=== PATIENT | male | born 1955 | race Caucasian/White ===

== ENCOUNTER → 2018-12-09 | Outpatient (CLI) | payer MEDICARE ==
--- NOTE | 2018-12-09 08:03 | US ---
EXAMINATION TYPE: US abdomen complete DATE OF EXAM: 12/09/2018 COMPARISON: NONE CLINICAL HISTORY: R1084 ABD PAIN. EXAM MEASUREMENTS: Liver Length: 11.3 cm Gallbladder Wall: 0.2 cm CBD: 0.2 cm Spleen: 10.0 cm Right Kidney: 13.2 x 4.8 x 4.8 cm Left Kidney: 12.2 x 4.7 x 5.2 cm Extensive overlying midline bowel gas. Pancreas: Obscured by bowel gas Liver: Trace amount of ff adjacent to left lobe Gallbladder: large mobile stones within Evidence for sonographic Munguia's sign: no CBD: wnl Spleen: wnl Right Kidney: Upper limits of normal however within acceptable symmetric ranging comparison to the le ft kidney. Left Kidney: wnl Upper IVC: wnl Abd Aorta: mostly obscured by overlying bowel gas, small portion visualized wnl The liver is homogenous. The intrahepatic portion of the IVC and proximal abdominal aorta are within normal limits. There is no evidence of cholelithiasis. Common bile duct is unremarkable. The sple en is unremarkable. Kidneys are symmetric and free of hydronephrosis. No renal lesions are seen. IMPRESSION: 1. Cholelithiasis without sonographic evidence of acute cholecystitis. 2. Trace perihepatic free fluid. 3. Nonvisualization of the pancreas due to obscuration by overlying bowel gas.
== END | disposition home or self-care (01) ==
LOC: RADUSWWP 06:48
PROVIDERS: ATTEND Internal Medicine
DX: K80.20 Calculus of gallbladder without cholecystitis without obstruction (principal)
CPT/HCPCS: 76700

== ENCOUNTER → 2021-02-04 | Outpatient (CLI) | payer MEDICARE ==
[2021-02-04 18:51] LABS: HCT 38.1 % (39.6-50.0); HGB 11.6 g/dL (13.0-17.0); MCH 28.9 pg (27.0-32.0); MCHC 30.4 g/dL (32.0-37.0); MCV 94.8 fL (80.0-97.0); Mean Platelet Volume 11.8 fL (9.5-12.2); Platelet Count 348 X 10*3/uL (140-440); RBC 4.02 X 10*6/uL (4.40-5.60); RDW 15.2 % (11.5-14.5); WBC 14.98 X 10*3/uL (4.50-10.00)
[2021-02-04 23:33] LABS: African American GFR (CKD) 50.9 (60.0-200.0); Albumin/Globulin Ratio 2.67 (1.60-3.17); Anion Gap 3.5 mmol/L (4.00-12.00); BUN/Creat Ratio 17.5 Ratio (12.00-20.00); Calcium 8.7 mg/dL (8.7-10.3); Carbon Dioxide 36.5 mmol/L (21.6-31.8); Chol/HDL Ratio 2.56; Globulin 1.5 g/dL (1.6-3.3); LDL Cholesterol,Calculated 37.4 mg/dL (0.0-131.0); Non-African American GFR(CKD) 43.9 (60.0-200.0); Potassium 4.7 mmol/L (3.5-5.5); Total Bilirubin 0.4 mg/dL (0.2-1.2); Total Protein 5.5 g/dL (6.2-8.2); VLDL Calculation 23.6 mg/dL (5.00-40.00)
== END | disposition home or self-care (01) ==
LOC: LABWHC1 07:48
PROVIDERS: ATTEND Internal Medicine
DX: I10 Essential (primary) hypertension (principal); E78.5 Hyperlipidemia, unspecified; E66.9 Obesity, unspecified
CPT/HCPCS: 36415; 80053; 80061; 83036; 83880; 85027

== ENCOUNTER → 2021-03-30 | Outpatient (CLI) | payer MEDICARE ==
--- NOTE | 2021-03-30 12:35 | XR ---
EXAMINATION TYPE: XR chest 2V DATE OF EXAM: 03/30/2021 COMPARISON: 04/21/2014 INDICATION: Short of breath TECHNIQUE: Frontal and lateral views of the chest are obtained. FINDINGS: The heart size is normal. The pulmonary vasculature is normal. There is a small right pleural effusion. Minimal left costophrenic angle pleural fluid is present.. IMPRESSION: 1. Small right pleural effusion. This may be partially subpulmonic as well as within the inferior asp ect of the major fissure. 2. Minimal left pleural effusion.
--- NOTE | 2021-03-30 15:17 | NM ---
EXAMINATION TYPE: NM pul vent and perfuse DATE OF EXAM: 03/30/2021 COMPARISON: 03/30/2021 HISTORY: I27.29 TECHNIQUE: Utilizing inhalation of 31.8 mCi Tc 99m DTPA aerosol and intravenous injection of 4.7 mCi of Tc 99m MAA, ventilation and perfusion images are acquired post injection in multiple projections. FINDINGS: Patchy distribution of the radiotracer on ventilation throughout the bilateral lung paris compatible with COPD. Some ventilation defects are at the right lung base. Mismatch perfusion ventilation defec ts are not evident. This exam is compared with the chest x-ray. There is a small right pleural effusion. Defects on the v entilation and perfusion are also present at the right lung base. Triple matched defect is at the low end of intermediate probability for pulmonary embolism, approximately 22%, based on PIOPED 2 criteri a. IMPRESSION: 1. Low end of intermediate probability for pulmonary embolism based on PIOPED 2 criteria.
== END | disposition home or self-care (01) ==
LOC: RADNMMAIN 12:07
PROVIDERS: ATTEND Internal Medicine Cardiovascular Disease
DX: J90 Pleural effusion, not elsewhere classified (principal); I27.29 Other secondary pulmonary hypertension
CPT/HCPCS: 71046; 78582; A9540; A9567

== ENCOUNTER → 2021-07-21 | Outpatient (CLI) | payer MEDICARE ==
[2021-07-21 18:15] LABS: African American GFR (CKD) 88.2 (60.0-200.0); Blood Urea Nitrogen 15.7 mg/dL (9.0-27.0); Non-African American GFR(CKD) 76.1 (60.0-200.0); Potassium 5.2 mmol/L (3.5-5.5); T4, Free (Free Thyroxine) 1.18 ng/dL (0.800-1.800)
== END | disposition home or self-care (01) ==
LOC: LABWHC1 08:35
PROVIDERS: ATTEND Internal Medicine Cardiovascular Disease
DX: I10 Essential (primary) hypertension (principal); E11.9 Type 2 diabetes mellitus without complications; R63.4 Abnormal weight loss
CPT/HCPCS: 36415; 80051; 82565; 82607; 83036; 84439; 84443; 84520

== ENCOUNTER → 2022-01-17 | Outpatient (CLI) | payer MEDICARE ==
--- NOTE | 2022-01-17 21:40 | CT ---
EXAMINATION TYPE: CT chest w con DATE OF EXAM: 01/17/2022 COMPARISON: CT dated 03/13/2014 HISTORY: fluid on lungs CT DLP: 370 mGycm Automated exposure control for dose reduction was used. TECHNIQUE: CT scan of the chest is performed with IV Contrast, patient injected with 100 mL of Isovue 300. FINDINGS: LUNGS: Large masslike consolidation occupying most of the right lower lobe measuring 12.2 x 12.7 cm. The lateral aspect of the lesion demonstrates hyperenhancement with adjacent loculated pleural fluid. Another area of thick consolidation with air bronchograms involving most of the middle lobe. Multipl e variable sized infiltrative nodular lesions are seen in the remainder of the right lung most eviden t laterally. Paraseptal emphysema are seen in the lung apex larger on the right side. Milder parasept al emphysema is seen in the left lung base. No suspicious left lung lesion or nodule. Patent trachea and main bronchi. No left-sided pleural effusion. Bronchial impaction is seen in the right lower lobe bronchi. MEDIASTINUM: Slight cardiac enlargement, please correlate with echocardiographic results. Coronary an d arterial atherosclerotic calcifications. The pulmonary trunk measures 3.3 cm. A tiny filling defect is seen in the right upper lobe pulmonary artery which could represent tiny chronic pulmonary embolu s. No pathologically enlarged lymph nodes in the chest. OTHER: Bilateral gynecomastia changes. Previous cholecystectomy. Small spleen and pancreas. Diffusel y thickened adrenals, progressed compared to the previous CT scan, underlying adrenal lesions cannot be excluded. No gross aggressive bone lesion. IMPRESSION: Masslike consolidation in the right lower lobe and to a lesser extent in the middle lobe with diffuse infiltrating micronodules in the right lung as detailed above. This is concerning for l courtney cancer however other neoplastic/malignant processes cannot be excluded. Recommend thoracic surger y consultation, further PET scan assessment and tissue diagnosis. Other findings as detailed above.
== END | disposition home or self-care (01) ==
LOC: RADCTMAIN 16:00
PROVIDERS: ATTEND Internal Medicine
DX: R91.8 Other nonspecific abnormal finding of lung field (principal)
CPT/HCPCS: 82565; 84520; 71260; 36415; Q9967

== ENCOUNTER → 2022-03-07 | Outpatient (CLI) | payer MEDICARE ==
[2022-03-07 14:25] LABS: HCT 35.6 % (39.6-50.0); HGB 10.2 g/dL (13.0-17.0); MCH 26.7 pg (27.0-32.0); MCHC 28.7 g/dL (32.0-37.0); MCV 93.2 fL (80.0-97.0); Mean Platelet Volume 10.6 fL (9.5-12.2); NRBC Per 100 WBC 0 /100 WBCS (0.0-0.0); Platelet Count 316 X 10*3/uL (140-440); RBC 3.82 X 10*6/uL (4.40-5.60); WBC 9.89 X 10*3/uL (4.50-10.00)
[2022-03-07 15:09] LABS: Chol/HDL Ratio 1.73 Ratio; LDL Cholesterol,Calculated 30.1 mg/dL (0.0-131.0); VLDL Calculation 16.18 mg/dL (5.00-40.00)
== END | disposition home or self-care (01) ==
LOC: LABWHC1 08:37
PROVIDERS: ATTEND Internal Medicine
DX: Z12.5 Encounter for screening for malignant neoplasm of prostate (principal); R60.0 Localized edema; D64.9 Anemia, unspecified; E11.9 Type 2 diabetes mellitus without complications; I10 Essential (primary) hypertension; C61 Malignant neoplasm of prostate
CPT/HCPCS: 36415; 80061; 83036; 83880; 84153; 85027